=== PATIENT | female | born 1980 | race Caucasian/White ===

== ENCOUNTER 2018-12-04 17:12 | Emergency (ER) | payer BC, MEDICAID ==
[2018-12-04] MEDS: DEXAMETHASONE 10 MG/ML 1 ML INJ IM (18:37)
[2018-12-04] MEDS: KETOROLAC 30 MG INJ IM (18:37)
== END 2018-12-04 18:49 | disposition home or self-care (01) ==
LOC: FTE 17:12
DX: M54.5 Low back pain (principal)
CPT/HCPCS: 81025; 96372; 99284-25